=== PATIENT | female | born 1995 | race Caucasian/White ===

== ENCOUNTER 2021-02-05 18:49 | Emergency (ER) | payer OTHER ==
[~2021-02-05] VITALS: Ht 162.6 cm; Wt 50.8 kg
[2021-02-05] MEDS ORDERED: PROAIR HFA8.5 GM INH (20:22)
[2021-02-05] MEDS ORDERED: MEDROLDOSEPACK PO (20:22)
[2021-02-05 20:54] VITALS: BP 110/80
== END 2021-02-05 20:56 | disposition home or self-care (01) ==
LOC: ER 18:49
DX: J45.909 Unspecified asthma, uncomplicated (principal)